=== PATIENT | female | born 1980 | race African-American/Black ===

== ENCOUNTER 2020-04-03 19:24 | Emergency (ER) | payer MEDICARE ==
[~2020-04-03] VITALS: Ht 154.9 cm; Wt 50.2 kg
[2020-04-03 19:29] VITALS: BP 125/95
[2020-04-03 19:58] LABS: CLARITY,URINE CLEAR (Clear); COLOR,URINE YELLOW (Yellow); GLUCOSE, URINE NEGATIVE (Neg); KETONES,URINE NEGATIVE (Neg); LEUKOCYTE ESTERASE ,URINE NEGATIVE (Neg); NITRITES, URINE NEGATIVE (Neg); OCCULT BLOOD,URINE NEGATIVE (Neg); PROTEIN,URINE NEGATIVE (Neg); UROBILINOGEN,URINE 0.2 E.U/dL (0.2-1.0)
[2020-04-03 20:01] LABS: URINE HCG NEGATIVE (NEG)
[2020-04-03 20:45] LABS: UA COLLECTION TYPE CLN CATCH MIDSTREAM
--- NOTE | 2020-04-03 21:25 | NUR ---
was at bedside for vaginal exam with provider FENG Charlton, pt tolerated it well
[2020-04-03] MEDS ORDERED: FLUC150T66 PO (21:54)
[2020-04-03] MEDS ORDERED: CefTRIAXone 250MG IM Kit w/LIDOcaine IM ONE (21:55)
[2020-04-03] MEDS ORDERED: azithromycin 250mg tablet PO ONE (21:55)
[2020-04-03] MEDS ORDERED: fluconazole 100mg tablet PO ONE (21:55)
== END 2020-04-03 22:36 | disposition home or self-care (01) ==
LOC: ER 19:26
DX: B37.9 Candidiasis, unspecified (principal); Z11.3 Encounter for screening for infections with a predominantly sexual mode of transmission; Z79.899 Other long term (current) drug therapy
CPT/HCPCS: 36415; 81003; 81025; 87210; 87491; 87591; 96372; 99283; J0696; Q0112